=== PATIENT | male | born 1950 | race Caucasian/White ===

== ENCOUNTER 2022-01-28 11:48 | Emergency (ER) | payer OTHER, SELFPAY ==
--- NOTE | ~2022-01-28 | XR_ITS ---
EXAMINATION: XR foot LT min 3V DATE: 01/28/2022 12:45 INDICATION: Left foot pain and limping post injury 2 days prior TECHNIQUE: Dorsoplantar, two oblique and lateral views of the left foot were obtained. COMPARISON: None. FINDINGS: 45 degrees hallux valgus with mild bunion formation. No healed fracture deformity at the neck of the fourth proximal phalanx. Alignment is otherwise normal. No acute fracture. Polyarticular osteoarthrit is mild to moderate at the first metatarsophalangeal and second tarsal metatarsal joint and mild at t he calcaneocuboid, a few of the remaining tarsal metatarsal joints and several interphalangeal joints . Small plantar calcaneal spur. Mild soft tissue swelling over the dorsolateral aspect of the midfoot . IMPRESSION: 1. No acute osseous abnormality. 2. Hallux valgus with mild bunion. 3. Mild to moderate polyarticular osteoarthritis. Reviewed, dictated and finalized at location A.
[2022-01-28 11:51] VITALS: BP 170/79; PULSE 83; RESP 18; TEMP 36.2; O2SAT 99
--- NOTE | 2022-01-28 12:52 | ED.GENADULT ---
HPI - General Adult General Chief complaint: Extremity Injury, Lower Stated complaint: Left Foot Injury Time Seen by Provider: 01/28/22 12:22 History of Present Illness HPI narrative: 71-year-old male history of dementia presenting the emergency department evaluation of approximately 4 days of left foot pain. Patient states that he has been having left midfoot pain that is worsened with ambulation. Patient denies any falls or injuries. Related Data Home Medications Medication Instructions Recorded Confirmed carvedilol 6.25 mg tablet mg 01/28/22 diltiazem HCl 120 mg mg PO 01/28/22 capsule,extended release 24 hr donepezil 10 mg tablet mg 01/28/22 01/28/22 finasteride 5 mg tablet mg 01/28/22 meloxicam 15 mg tablet mg 01/28/22 memantine 10 mg tablet mg 01/28/22 pantoprazole 40 mg tablet,delayed mg PO 01/28/22 release Allergies Allergy/AdvReac Type Severity Reaction Status Date / Time No Known Allergies Allergy Verified 01/28/22 12:29 Review of Systems Review of Systems: CONSTITUTIONAL: Denies fever, chills, or sweats. EYES: Denies visual changes, redness, or discharge. ENT: Denies rhinorrhea, congestion, sore throat, or otalgia. CARDIOVASCULAR: Denies chest pain, palpitations, or edema. RESPIRATORY: Denies cough or dyspnea. GASTROINTESTINAL: Denies abdominal pain, nausea, vomiting, or diarrhea. GENITOURINARY: Denies dysuria or hematuria. SKIN: Denies rash or itching. MUSCULOSKELETAL: Left foot pain with ambulation, see HPI NEUROLOGIC: Denies headache, numbness, or weakness. Exam Narrative: APPEARANCE: Well appearing, no pain, no distress, well-nourished. HEAD: normocephalic, atraumatic. EYES: PERRLA/EOMI, conjunctivae clear. NOSE: Normal no drainage NECK: Supple. No adenopathy, no masses. RESPIRATORY: Airway patent, respirations nonlabored. Clear to auscultation bilaterally, no rales, rhonchi, wheezing. CARDIOVASCULAR: Regular rate and rhythm without murmurs rubs or gallops. ABDOMINAL: Soft, nontender, nondistended, normal bowel sounds MUSCULOSKELETAL: Left midfoot tenderness to palpation. No lower leg tenderness to palpation, no ankle tenderness to palpation. NEURO: Alert. Cranial nerves II through XII intact. Grossly intact SKIN: Warm, dry. Normal Color PSYCHIATRIC: Normal affect/mood. Course Course Emergency Course: No acute fracture or dislocation. Patient was provided Jose wrap for support. Patient be treated as an foot sprain. Family states the patient did well on crutches. He was provided a prescription for a walker. Patient was encouraged of close follow-up with his primary care physician and male with a follow-up with orthopedics. Vital Signs Vital signs: Vital Signs Temperature 97.1 F L 01/28/22 11:51 Pulse Rate 83 01/28/22 11:51 Respiratory Rate 18 01/28/22 11:51 Blood Pressure 170/79 H 01/28/22 11:51 Pulse Oximetry 99 01/28/22 11:51 Oxygen Delivery Room Air 01/28/22 11:51 Temperature 97.1 F L 01/28/22 11:51 Pulse Rate 83 01/28/22 11:51 Respiratory Rate 18 01/28/22 11:51 Blood Pressure 170/79 H 01/28/22 11:51 Pulse Oximetry 99 01/28/22 11:51 Oxygen Delivery Room Air 01/28/22 11:51 Medical Decision Making Vital Signs Vital Signs: Vital Signs Temperature 97.1 F L 01/28/22 11:51 Pulse Rate 83 01/28/22 11:51 Respiratory Rate 18 01/28/22 11:51 Blood Pressure 170/79 H 01/28/22 11:51 Pulse Oximetry 99 01/28/22 11:51 Oxygen Delivery Room Air 01/28/22 11:51 Temperature 97.1 F L 01/28/22 11:51 Pulse Rate 83 01/28/22 11:51 Respiratory Rate 18 01/28/22 11:51 Blood Pressure 170/79 H 01/28/22 11:51 Pulse Oximetry 99 01/28/22 11:51 Oxygen Delivery Room Air 01/28/22 11:51 Imaging Data Radiologist's impression: IMPRESSION: 1. No acute osseous abnormality. 2. Hallux valgus with mild bunion. 3. Mild to moderate polyarticular osteoarthritis. Discharge Plan Discharge Clinical Impression: Acute
== END 2022-01-28 14:21 | disposition home or self-care (01) ==
PROVIDERS: Emergency Provider Emergency Medicine; PCP Internal Medicine
DX: M79.672 Pain in left foot (principal); M20.12 Hallux valgus (acquired), left foot; M19.072 Primary osteoarthritis, left ankle and foot; M21.612 Bunion of left foot
CPT/HCPCS: 73630; 99283